=== PATIENT | female | born 1950 | race Caucasian/White ===

== ENCOUNTER 2019-11-30 00:28 | Day surgery (SDC) | payer MEDICARE, SELFPAY ==
[2019-11-24 14:36] VITALS: BMI 26.4
--- NOTE | 2019-11-29 17:43 | WPDANESEPP ---
Anes - Eval Pre Procedure Procedure: Operation Date: 11/30/19 08:00 Proposed Procedures p Esophagogastroduodenoscopy & Colonoscopy - Sudarshan Smyth MD Date/Time: 11/29/19 17:43 Pre Op Diagnosis: Iron Deficiency Anemia Patient Data Age: 69 Gender: F Height: 1.63 m Weight: 70 kg Allergies Allergy/AdvReac Type Severity Reaction Status Date / Time Penicillins Allergy Unknown RASH Verified 07/03/18 17:45 Home Medications Medication Instructions Recorded Confirmed Type alprazolam 0.5 mg PO DAILY 11/24/19 11/24/19 History amlodipine [Norvasc] 10 mg PO DAILY 11/24/19 11/24/19 History aspirin 81 mg PO DAILY 11/24/19 11/24/19 History ferrous sulfate 325 mg PO DAILY 11/24/19 11/24/19 History glipizide 20 mg PO BID 11/24/19 11/24/19 History hydrochlorothiazide 25 mg PO DAILY 11/24/19 11/24/19 History insulin glargine [Lantus Solostar See Protocol SUBCUT HS 11/24/19 11/24/19 History U-100 Insulin] irbesartan 300 mg PO DAILY 11/24/19 11/24/19 History metformin 500 mg PO DAILY 11/24/19 11/24/19 History metoprolol succinate 50 mg PO DAILY 11/24/19 11/24/19 History Patient hx anesthesia problems: none Family hx anesthesia problems: none PMFSH Past Medical History Medical History (Updated 11/29/19 @ 17:45 by Rupinder Beth CRNA) Anxiety Breast cancer Diabetes 1.5, managed as type 2 HLD (hyperlipidemia) HTN (hypertension) Overweight Renal stones Surgical History Surgical History (Updated 11/29/19 @ 17:45 by Rupinder Beth CRNA) H/O lithotripsy H/O partial thyroidectomy H/O splenectomy Hx of cholecystectomy Previous section Social History Social History Gender identity (if verbalized by the patient): Female Exam Day of Procedure 11/29/19 17:43
[2019-11-30 07:07] VITALS: BMI 27.3
--- NOTE | 2019-11-30 07:11 | WPDANESEFPP ---
Anes - Eval Final PreProcedure Day of Procedure 11/30/19 07:11 Patient weight: overweight Heart: regular rate and rhythm Lungs: clear to auscultation Airway: Mallampati scale class II Neurological: alert and oriented Last oral intake: >/= 8 hours ASA classification: III Emergent: no Anesthetic plan: proceed Anesthesia type and monitoring: general GIVS and standard monitoring Informed Consent: The patient's anesthetic plan and its attendant risks and benefits were discussed with the patient/family/POA. Questions were solicited and answers provided to the satisfaction of the patient/family/POA.
[2019-11-30] MEDS: LACTATED RINGERS 1,000 ML 150 ML IV CONT (07:15)
--- NOTE | 2019-11-30 07:16 | P.HP_ITS ---
History of Present Illness History of Present Illness Consent: Risks, benefits, and alternatives have been discussed and questions answered. Patient agrees to proceed with procedure. Chief complaint: Iron Deficiency Anemia Narrative: Domenica Kelly is a 69 year old female with iron deficiency anemia [facility] Past Medical History Medical History Anxiety Breast cancer Diabetes 1.5, managed as type 2 HLD (hyperlipidemia) HTN (hypertension) Overweight Renal stones Surgical History Surgical History H/O lithotripsy H/O partial thyroidectomy H/O splenectomy Hx of cholecystectomy Previous section Social History Social History Gender identity (if verbalized by the patient): Female Meds Home Medications and Allergies Home Medications Medication Instructions Recorded Confirmed Type alprazolam 0.5 mg PO DAILY 11/24/19 11/30/19 History amlodipine [Norvasc] 10 mg PO DAILY 11/24/19 11/30/19 History aspirin 81 mg PO DAILY 11/24/19 11/30/19 History ferrous sulfate 325 mg PO DAILY 11/24/19 11/30/19 History glipizide 20 mg PO BID 11/24/19 11/30/19 History hydrochlorothiazide 25 mg PO DAILY 11/24/19 11/30/19 History insulin glargine [Lantus Solostar See Protocol SUBCUT HS 11/24/19 11/30/19 History U-100 Insulin] irbesartan 300 mg PO DAILY 11/24/19 11/30/19 History metformin 500 mg PO DAILY 11/24/19 11/30/19 History metoprolol succinate 50 mg PO DAILY 11/24/19 11/30/19 History Allergies Allergy/AdvReac Type Severity Reaction Status Date / Time Penicillins Allergy Unknown RASH Verified 11/30/19 07:03 Exam 2 Const: General: alert Orientation/consciousness: patient oriented x3 Resp: Auscultation: clear to auscultation bilaterally Cardio: Rhythm: regular rhythm GI: GI Palp: Yes Soft to palpation and No Tenderness to palpation present (GI) Neuro: General: patient oriented x3 Assessment and Plan Assessment and plan (1) Iron deficiency anemia: Code(s): D50.9 - Iron deficiency anemia, unspecified Status: Acute Assessment and Plan: Colonoscopy with possible biopsy or polypectomy or cautery or injection of substances.EGD with possible biopsy or dilatation or cautery.
[2019-11-30 07:25] LABS: Glucose Point of Care 131 (65-105)
[2019-11-30 08:27] VITALS: BP 136/89; PULSE 81; RESP 18; O2SAT 99
[2019-11-30 08:37] VITALS: BP 118/64; PULSE 69; RESP 18; O2SAT 99
[2019-11-30 08:46] LABS: Glucose Point of Care 155 (65-105)
[2019-11-30 08:47] VITALS: BP 130/67; PULSE 69; RESP 18; O2SAT 99
== END 2019-11-30 09:11 | disposition home or self-care (01) ==
PROVIDERS: PCP Internal Medicine Geriatric Medicine; Visit Provider Internal Medicine Gastroenterology
PROC: 0DJ08ZZ Inspection of Upper Intestinal Tract, Via Natural or Artificial Opening Endoscopic (ICD-10-PCS; CPT 43235; principal; 2019-11-30 08:00)
DX: D50.9 Iron deficiency anemia, unspecified (principal); K57.30 Diverticulosis of large intestine without perforation or abscess without bleeding; K22.4 Dyskinesia of esophagus; I10 Essential (primary) hypertension; E78.5 Hyperlipidemia, unspecified; E13.9 Other specified diabetes mellitus without complications; F41.9 Anxiety disorder, unspecified; Z79.4 Long term (current) use of insulin; Z79.84 Long term (current) use of oral hypoglycemic drugs; Z79.82 Long term (current) use of aspirin; Z85.3 Personal history of malignant neoplasm of breast
CPT/HCPCS: 45378; 43239; 88305; J2704; J7120

== ENCOUNTER 2020-08-13 09:23 | Outpatient (CLI) | payer MEDICARE, SELFPAY ==
--- NOTE | ~2020-08-13 | CT_ITS ---
EXAMINATION: CT abdomen pelvis wo con DATE: 08/13/2020 10:15 INDICATION: Nephrolithiasis presenting with bilateral flank pain. TECHNIQUE: Computed tomography (CT) of the abdomen and pelvis was performed without intravenous contr ast. Automated exposure control and iterative reconstruction technique were employed. The dose-length product was 206.27 mGy-cm. COMPARISON: 04/01/2016 FINDINGS: Calcified right lower lobe nodules consistent with old granulomatous disease. Heart size is normal. N o pericardial or pleural effusion. Atherosclerotic coronary artery calcific calcification. Unchanged 1.8 cm sebaceous cyst along the medial left inferior costal margin. Cholecystectomy clips at the gall bladder fossa. Status post splenectomy and distal pancreatectomy with suture line along the truncated pancreatic tail. Liver and bilateral adrenal glands are normal. 3 mm nonobstructing stone at the low er pole of the left kidney. No stones in the right kidney or along the bilateral ureters. No hydroure ter nephrosis. Gas within a small duodenal diverticulum posterior to the head of the pancreas. Normal appendix. Bowels are otherwise unremarkable. Bladder, uterus and bilateral adnexa are unremarkable. Multiple phleboliths in the pelvis. No free intraperitoneal gas or fluid. No pathologically enlarged abdominal or pelvic lymphadenopathy. Chronic mild right-sided superior endplate compression fractures at T12 and L1 and to a lesser degree at L3. IMPRESSION: 1. 3 mm nonobstructing left renal stone. Reviewed, dictated and finalized at location B.
== END 2020-08-13 09:24 | disposition home or self-care (01) ==
LOC: ANHIMG 09:36
PROVIDERS: PCP Internal Medicine Geriatric Medicine; Visit Provider Urology
DX: N20.0 Calculus of kidney (principal)
CPT/HCPCS: 74176